=== PATIENT | male | born 1970 | race Caucasian/White ===

== ENCOUNTER → 2016-07-05 | Outpatient (CLI) | payer BC ==
[~2016-07-05] MED LIST: BISO1TAB39 PO; HYDR-3456 PO; METR500T PO
--- NOTE | 2016-07-05 15:13 | Diagnostic Imaging Report ---
Right lower extremity nonvascular ultrasound. INDICATION: Lump in the inferolateral aspect of the knee. FINDINGS: There is a 3.2 x 3.8 x 1.6 cm largely cystic multiloculated lesion within the subcutaneous fat in the palpable area with mild internal debris and multiple septations. No internal vascularity seen. IMPRESSION: Complex largely cystic lesion is seen with internal debris. Exact etiology is uncertain. Consider possibility of an old hematoma. Dictated by: Dictated on workstation # [id number]
== END ==
LOC: RAD 11:25
PROVIDERS: ATTEND Nurse Practitioner Family
DX: R22.41 Localized swelling, mass and lump, right lower limb (principal)
CPT/HCPCS: 76881

== ENCOUNTER → 2017-02-10 | Outpatient (CLI) | payer BC ==
[2017-02-10 08:44] LABS: BASOPHILS # (AUTO) 0.1 10^3/uL (0.0-0.1); BASOPHILS % (AUTO) 2 % (0-10); EOSINOPHILS # (AUTO) 0.4 10^3/uL (0.0-0.3); EOSINOPHILS % (AUTO) 8 % (0-10); LYMPHOCYTES # (AUTO) 1.6 X 10^3 (1.0-4.0); LYMPHOCYTES % (AUTO) 32 % (12-44); MEAN CORPUSCULAR HEMOGLOBIN 29 PG (25-34); MEAN CORPUSCULAR HGB CONC 35 G/DL (32-36); MEAN CORPUSCULAR VOLUME 83 FL (80-99); MEAN PLATELET VOLUME 9.3 FL (7.4-10.4); MONOCYTES # (AUTO) 0.7 X 10^3 (0.0-1.0); MONOCYTES % (AUTO) 14 % (0-12); NEUTROPHILS # (AUTO) 2.2 X 10^3 (1.8-7.8); NEUTROPHILS % (AUTO) 45 % (42-75); PLATELET COUNT 184 10^3/uL (130-400); RED BLOOD COUNT 5.29 10^6/uL (4.35-5.85); RED CELL DISTRIBUTION WIDTH 12.7 % (10.0-14.5); WHITE BLOOD COUNT 4.9 10^3/uL (4.3-11.0)
[2017-02-10 09:04] LABS: ALANINE AMINOTRANSFERASE 30 U/L (0-55); ALBUMIN 4.2 GM/DL (3.2-4.5); ANION GAP 10 MMOL/L (5-14); ASPARTATE AMINO TRANSFERASE 24 U/L (5-34); BILIRUBIN,TOTAL 0.9 MG/DL (0.1-1.0); BLOOD UREA NITROGEN 14 MG/DL (7-18); BUN/CREATININE RATIO 15; CALCIUM 9.3 MG/DL (8.5-10.1); CARBON DIOXIDE 26 MMOL/L (21-32); CHLORIDE 103 MMOL/L (98-107); CHOLESTEROL 215 MG/DL (< 200); CREATININE SERUM 0.91 MG/DL (0.60-1.30); DIRECT LDL 156 MG/DL (1-129); GFR ESTIMATED > 60; GLUCOSE 97 MG/DL (70-105); POTASSIUM 3.9 MMOL/L (3.6-5.0); SODIUM 139 MMOL/L (135-145); TOTAL PROTEIN 7.1 GM/DL (6.4-8.2); TRIGLYCERIDES 88 MG/DL (<150); VLDL CHOLESTEROL 18 MG/DL (5-40)
[2017-02-10 09:25] LABS: THYROID STIMULATING HORMONE 1.54 UIU/ML (0.35-4.94); TROPONIN I < 0.30 NG/ML (<0.30)
== END ==
LOC: CARD 07:43
PROVIDERS: ATTEND Nurse Practitioner Family
DX: R07.9 Chest pain, unspecified (principal)
CPT/HCPCS: 36415; 80053; 80061; 84443; 84484; 85025; 93005

== ENCOUNTER → 2018-04-03 | Outpatient (CLI) | payer BC ==
--- NOTE | 2018-04-03 14:25 | Diagnostic Imaging Report ---
Indication: Knee pain. 3 views were obtained. Findings: Alignment is normal. There are mild degenerative changes. No fracture or dislocation. Soft tissues are unremarkable. Impression: Mild degenerative changes, otherwise unremarkable. Dictated by: Dictated on workstation # [id number]
== END ==
LOC: RAD 11:14
PROVIDERS: ATTEND Nurse Practitioner Family
DX: M17.12 Unilateral primary osteoarthritis, left knee (principal)
CPT/HCPCS: 73562

== ENCOUNTER → 2018-04-07 | Outpatient (CLI) | payer BC ==
--- NOTE | 2018-04-07 19:29 | Diagnostic Imaging Report ---
EXAMINATION: Magnetic resonance imaging of the left knee without intravenous contrast DATE: April 07, 2018. COMPARISON: Left knee radiograph, April 03, 2018. INDICATION: 47-year-old male, injury climbing approximately one week ago. Left knee pain. TECHNIQUE: Multiplanar, multisequence non contrast enhanced MR imaging was accomplished. FINDINGS: MENISCI: There is a full-thickness radial oriented tear involving the posterior root attachment of the medial meniscus. This is perhaps best illustrated on axial T2 fat saturation sequence image 12. This is also well illustrated on sagittal proton density sequence image 17 and adjacent sequential images. There is currently very mild medial meniscal extrusion measured at 3 mm. The lateral meniscus is intact. LIGAMENTS AND TENDONS: The anterior and posterior cruciate ligaments are intact. The medial collateral ligament is intact. The iliotibial band, mid third lateral capsular ligament, fibular collateral ligament, biceps femoris tendon and conjoined tendon are intact. The quadriceps tendon and patella ligament are intact. JOINT: There is irregularity and fissuring of the cartilage of the femoral trochlea. The patellar cartilage appears grossly intact. The medial and lateral compartment cartilage is grossly intact. There is a small knee joint effusion. There is no identified intra-articular body or prominent synovitis. BONE: There is a subcortical cyst in the proximal tibia underlying the attachment site of the posterior root attachment of the medial meniscus. This is most likely mechanically related. There is no acute fracture, bone contusion or evidence of osteonecrosis. BURSAE AND SOFT TISSUES: There is no Kinney's cyst. There is nonspecific prepatellar subcutaneous edema. IMPRESSION: 1. Full-thickness radially oriented tear of the posterior root attachment of the medial meniscus with currently 3 mm medial meniscal extrusion. 2. Intact lateral meniscus. 3. Intact anterior and posterior cruciate ligaments. Additional ligaments and tendons are intact. 4. Mild patellofemoral compartment osteoarthritis. Small knee joint effusion without intra-articular body or prominent synovitis. 5. No acute fracture or bone contusion. ? Dictated by: Dictated on workstation # [id number]
== END ==
LOC: RAD 07:34
PROVIDERS: ATTEND Nurse Practitioner Family
DX: S83.242A Other tear of medial meniscus, current injury, left knee, initial encounter (principal); M17.12 Unilateral primary osteoarthritis, left knee; Y93.39 Activity, other involving climbing, rappelling and jumping off
CPT/HCPCS: 73721